=== PATIENT | male | born 1960 | race Caucasian/White ===

== ENCOUNTER 2022-05-19 10:35 | Emergency (ER) | payer BC ==
--- OUTSIDE RECORDS SUMMARY | 2022-05-19 10:38 | XMS REPORT | Continuity of Care Document ---
:1960 Author Organization [facility] t Address [address] [place] [address] Care Team Providers Name Role Phone Unavailable Unavailable Unavailable Problems This patient has no known problems. Allergies, Adverse Reactions, Alerts This patient has no known allergies or adverse reactions. Medications This patient has no known medications. Procedures This patient has no known procedures. Encounters Start End Encounter Admission Attending Care Care Encounter Source Date/Time Date/Time Type Type Clinicians Facility Department ID 2022-01-08 Outpatient [facility] [id number] Common 07:29:00 [facility] 2021-11-04 Outpatient [facility] [id number] Common 14:31:08 [facility] Results This patient has no known results.
[2022-05-19] MEDS ORDERED: ONDANSETRON 4 MG/2 ML VIAL ONE (11:03)
[2022-05-19] MEDS ORDERED: HYDROMORPHONE HCL 1 MG/ML INJ ONE (11:03)
[2022-05-19 11:25] LABS: Absolute Lymphocytes (CBC) 1.8 K/uL (0.7-4.9); Hematocrit 37.5 % (39.6-49.0); Lymphocytes % 21.9 % (15.3-44.8); MCV 85.9 fL (80-100); MPV 7.4 fL (7.6-11.3); RBC Red Blood Cell Count 4.37 M/uL (4.33-5.43)
[2022-05-19 11:26] LABS: Protime INR 1.36
[2022-05-19 11:27] LABS: Potassium 3.8 mmol/L (3.5-5.1)
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
--- NOTE | 2022-05-19 11:42 | RAD REPORT ---
EXAM DESCRIPTION: RAD - Knee Left 2 View - 05/19/2022 11:04 am CLINICAL HISTORY: DEFORMITY COMPARISON: No comparisons FINDINGS/IMPRESSION: No acute fracture. No malalignment. Patellofemoral compartment spurring. Mild m edial compartment narrowing.
[2022-05-19 12:32] VITALS: TEMP 98.7; O2SAT 98
[2022-05-19 12:34] VITALS: BP 104/72
== END 2022-05-19 12:18 | disposition home or self-care (01) ==
LOC: ER 10:35
DX: M23.8X2 Other internal derangements of left knee (principal); F17.210 Nicotine dependence, cigarettes, uncomplicated
CPT/HCPCS: 85025; 80048; 36415; 85610; 73560; J1170; J2405; 96374; 96375; 99284